=== PATIENT | female | born 1960 | race Caucasian/White ===

== ENCOUNTER 2017-02-15 08:32 | Emergency (ER) | payer MEDICARE, SELFPAY ==
[2017-02-15] VITALS (7 sets, daily range): BP systolic 74–169; BP diastolic 60–90; PULSE 84–106; RESP 18–30; TEMP 36.8; O2SAT 94–100; BMI 22.1
--- NOTE | 2017-02-15 08:48 | MRI_ITS ---
STUDY: MRI LUMBAR SPINE WITHOUT CONTRAST REASON FOR EXAM: Female, 56 years old. Back pain with bilateral leg numbness. TECHNIQUE: Standardized fat and water weighted pulse sequences were obtained in the sagittal and axial planes. COMPARISON: None FINDINGS: T12-L1: Ru sagittal Normal endplates. Normal disc height, hydration and morphology. Normal bilateral facet joints. Normal central canal and bilateral lateral recesses. Normal bilateral intervertebral neural foramina. Normal lumbar lordosis. There is no substantial scoliosis. Normal conus medullaris that terminates at the superior endplate of the L2 vertebra. L1-2: (Imaged only in the sagittal plane). Normal endplates. Normal disc height, hydration and morphology. Normal bilateral facet joints. Normal central canal and bilateral lateral recesses. Normal bilateral intervertebral neural foramina. L2-3: Normal endplates. Normal disc height, hydration and morphology. Normal bilateral facet joints. Normal central canal and bilateral lateral recesses. Normal bilateral intervertebral neural foramina. L3-4: There is disc desiccation, mild loss of the disc height with circumferential annular bulging and facet arthrosis. The AP diameter of the central canal measures 9.5 mm which is at the lower limits of normal in size. There is mild bilateral foraminal stenosis but without neural impingement. L4-5: There is disc desiccation, preservation disc height, circumferential annular bulging with moderate bilateral facet arthrosis there is hypertrophy ligament flavum with infolding producing dorsolateral thecal sac flattening and moderate central canal and left lateral recess stenosis with neural impingement upon the descending left L5 nerve root (axial T2 series 6, image 12). There is mild right and moderate left-sided foraminal stenosis with mild anterior-posterior impingement upon the exiting left L4 nerve root (sagittal T2 series 2, image 3).. L5-S1: There is disc desiccation with collapse intervertebral discs with circumferential endplate. There is a posterior central disc protrusion (sagittal T2 series 2, image 7, measuring 3 x 14 mm (AP, transverse), producing ventral epidural fat effacement. This mild facet arthrosis. Normal central canal with moderate bilateral foraminal stenosis but without definitive neural impingement. S1-2: There is lumbarization the S1 vertebra with a rudimentary S1-2 intervertebral disc with normal hydration and patent intervertebral neural foramina. Normal visualized sacral ala. There is fluid distention of loops of bilateral extending into the pelvis. There is hypointense fluid which appears to be tracking the fascial planes which appears to be extraluminal. CT of the abdomen is recommended for further assessment of this indeterminate finding. MRI/Spine Lumbar (Routine) IMPRESSION: 1. L3-4 borderline central canal stenosis. 2. L4-5 moderate central canal and left foraminal and left lateral recess stenoses with impingement upon the exiting left L4 and descending left L5 nerve root. 3. L5-S1 advanced degenerative disc disease with a posterior central disc protrusion and bilateral facet arthrosis with moderate bilateral foraminal stenosis. 4. Possible hypointense extraluminal fluid within the abdomen. A CT scan of the abdomen is recommended for further assessment of this indeterminate finding. N.B. : The above information has been verbally conveyed by Troy Kingston DO to , Covering Physician, on 02/15/2017 10:37:55 (ET). Electronically Signed: Troy Kingston DO at 10:24 EST Tel , Service support , N.B. : The above information has been verbally conveyed by Troy Kingston DO to , Covering Physician, on 02/15/2017 10:37:55 (ET).
[2017-02-15] MEDS: Ketorolac 30 MG/ML Syringe IV (08:56)
[2017-02-15] MEDS: Ondansetron 4 MG/2 ML Vial IV (08:56)
[2017-02-15] MEDS: HYDROmorphone HCL 0.5 MG/0.5 ML SYRINGE 1 MG IV ×2 (08:56→09:30)
[2017-02-15 09:30] LABS: Absolute Neutrophil Count 10.8 X10^3/uL (2.0-7.7); Basophil# 0.01 X10^3/uL; Basophil% 0.1 % (0-1); Eosinophil# 0.02 X10^3/uL; Eosinophils% 0.2 % (0-5); Hematocrit 30.9 % (37-47); Hemoglobin 10.3 g/dl (12.0-15.0); Lymphocyte % 8.6 % (19-41); Mean Corp Hgb Conc 33.3 g/gl (32-36); Mean Corpuscular Hgb 31.2 pg (27.0-32.0); Mean Corpuscular Volume 93.6 fL (81-99); Mean Platelet Vol. 8.1 fl (6.2-12.0); Monocyte# 0.78 X10^3/uL; Monocyte% 6.1 % (0-10); Neutrophil # 10.82 X10^3/uL (2.7-7.7); Neutrophil % 84.5 % (47-70); POSITIVE COUNT NO; POSITIVE DIFFERENTIAL NO; POSITIVE MORPHOLOGY NO; Platelet Count 347 K/mm3 (150-450); RBC Distribution Width CV 12.6 % (11.6-14.6); RBC Distribution Width SD 41.1 fl (35.1-43.9); White Blood Count 12.8 K/mm3 (4.4-11.0)
--- NOTE | 2017-02-15 09:41 | ED.VISSUMM ---
- ER Visit Summary Date of Service: 02/15/17 Chief Complaint: Awoke this a.m. with severe back pain and inability to use legs History of Present Illness: The patient is a 56 F with a history of MS who presents with severe lower back pain associated with incontinence and inability to use legs. Patient denies fever, chills night sweats. She denies any ocular, visual auditory symptoms. No trouble with speech or swallowing. Denies any cardiac respiratory symptoms. She denies abdominal pain, nausea, vomiting or diarrhea. Per EMS report she was found in puddle of stool and urine. She states she has no sensation in her legs and cannot move her legs. Physical Examination: Patient's vitals are remarkable for elevation blood pressure 143/90. Respiratory to 30. She appears uncomfortable. Head is atraumatic normocephalic. Pupils are equal round reactive. Extraocular muscles are intact. TMs are pearly white with landmarks noted. Nares patent with no drainage. Posterior pharynx without erythema or exudate. Uvula is midline. There is no dysphonia or dysphasia. Trachea is midline. There is no stridor with auscultation of the neck. Heart is regular without murmur, gallop or rub. S1 and S2 are normal. Lungs are clear to auscultation with good movement of air bilaterally. Abdomen is soft but firm. There is no pain. She has surgical scars noted that are well-healed. She has severe lumbar pain to palpation. Pelvis is nontender. She is incontinent of urine. She has no rectal tone. Deep tendon reflexes 1+ upper extremity absent lower extremity at the patella and ankle. She does not perceive light touch pain or noxious stimuli. DP pulses palpable bilaterally. There is no clonus or Babinski sign noted. Test Results: White count is 12.8 with 84 segs. Electrode panel 3.1. Glucose is 273. Coags are pending. Stat MRI revealed no abnormality would explain patient's symptoms. Radiologist was concerned that there was fluid in the fascial planes/retroperitoneal space. He recommended stat CT of the abdomen to discern etiology of this abnormality. CT of the abdomen and pelvis with IV contrast was ordered. There is evidence of aortic dissection. distribution technician will scan the chest. The [facility] has been sent and requested emergent dispatch of their helicopter. Emergency Department Course and Treatment: MRI of the back was ordered without contrast and she has no higher history of surgery. She was medicated with Dilaudid 1 mg ?2, 30 mils Toradol ?1 and Zofran for milligrams ?1. Blood work was ordered as well. Differential includes cord compression from cancer, transverse myelitis, epidural abscess, cauda equina syndrome Treatment Plan: Esmolol drip at night prior drip for blood pressure control and shearing forces. Disposition: Emergent transfer to tertiary center the transport team from the [facility] has accepted patient and is in route Impression: Acute aortic dissection, type A This note was generated with [employer] dictation software. It may contain incorrect words, spelling, and punctuation that were not noted in review of the chart prior to signing ED Disposition - Plan for ED Patient: Chief Complaint: Back Referrals: Gianluca Monsalve [Primary Care Provider] -
[2017-02-15 09:42] LABS: Anion Gap 17 (5-15); BUN 8 mg/dL (7-18); BUN/Creat Ratio 9.8 RATIO (10-20); Calcium,Total 8.4 mg/dL (8.5-10.1); Chloride 101 mmol/L (98-107); Creatinine, Serum 0.82 mg/dL (0.55-1.02); EST Glomerular Filtration Rate 77 mL/min (>60); Est Glom Filt Rate - Afr Amer 93 mL/min (>60); Estimated Creatinine Clearance 55.03 ml/min; Glucose 237 mg/dL (70-110); Potassium 3.1 mmol/L (3.5-5.1); Sodium Level 139 mmol/L (136-145)
--- NOTE | 2017-02-15 09:45 | ED.DCSUM_ITS ---
- ER Visit Summary Date of Service: 02/15/17 Chief Complaint: Awoke this a.m. with severe back pain and inability to use legs History of Present Illness: The patient is a 56 F with a history of MS who presents with severe lower back pain associated with incontinence and inability to use legs. Patient denies fever, chills night sweats. She denies any ocular , visual auditory symptoms. No trouble with speech or swallowing. Denies any cardiac respiratory symptoms. She denies abdominal pain, nausea, vomiting or diarrhea. Per EMS report she was found in puddle of stool and urine. She states she has no sensation in her legs and cannot move her legs. Physical Examination: Patient's vitals are remarkable for elevation blood pressure 143/90. Respiratory to 30. She appears uncomfortable. Head is atraumatic normocephalic. Pupils are equal round reactive. Extraocular muscles are intact. TMs are pearly white with landmarks noted. Nares patent with no drainage. Posterior pharynx without erythema or exudate. Uvula is midline. There is no dysphonia or dysphasia. Trachea is midline. There is no stridor with auscultation of the neck. Heart is regular without murmur, gallop or rub. S1 and S2 are normal. Lungs are clear to auscultation with good movement of air bilaterally. Abdomen is soft but firm. There is no pain. She has surgical scars noted that are well-healed. She has severe lumbar pain to palpation. Pelvis is nontender. She is incontinent of urine. She has no rectal tone. Deep tendon reflexes 1+ upper extremity absent lower extremity at the patella and ankle. She does not perceive light touch pain or noxious stimuli. DP pulses palpable bilaterally. There is no clonus or Babinski sign noted. Test Results: White count is 12.8 with 84 segs. Electrode panel 3.1. Glucose is 273. Coags are pending. Stat MRI revealed no abnormality would explain patient's symptoms. Radiologist was concerned that there was fluid in the fascial planes/retroperitoneal space. He recommended stat CT of the abdomen to discern etiology of this abnormality. CT of the abdomen and pelvis with IV contrast was ordered. There is evidence of aortic dissection. animal laboratory technician will scan the chest. The [facility] has been sent and requested emergent dispatch of their helicopter. Emergency Department Course and Treatment: MRI of the back was ordered without contrast and she has no higher history of surgery. She was medicated with Dilaudid 1 mg ?2, 30 mils Toradol ?1 and Zofran for milligrams ?1. Blood work was ordered as well. Differential includes cord compression from cancer, transverse myelitis, epidural abscess, cauda equina syndrome Treatment Plan: Esmolol drip at night prior drip for blood pressure control and shearing forces. Disposition: Emergent transfer to tertiary center the transport team from the [facility] has accepted patient and is in route Impression: Acute aortic dissection, type A This note was generated with [employer] dictation software. It may contain incorrect words, spelling, and punctuation that were not noted in review of the chart prior to signing ED Disposition - Plan for ED Patient: Chief Complaint: Back Referrals: Gianluca Monsalve [Primary Care Provider] -
--- NOTE | 2017-02-15 10:38 | CT_ITS ---
STUDY: CT ABDOMEN AND PELVIS WITH CONTRAST REASON FOR EXAM: Female, 56 years old. Low back pain and abdominal pain. Incontinence. Patient has a history of a multiple sclerosis. RADIATION DOSAGE (If Supplied By Facility): CTDIvol = ( 7.06 ) mGy, DLP = ( 512.02 ) mGycm TECHNIQUE: Transaxial images were obtained from the dome of the diaphragm to the symphysis pubis without oral contrast. 100 ml of Isovue 300 contrast was administered. Sagittal and coronal images were reconstructed. Individualized dose optimization techniques were used for this CT. COMPARISON: None. FINDINGS: The visualized lung bases are unremarkable. There is evidence of a Pradip type a dissection of the descending aorta, aortic arch and descending thoracic aorta. This extends down into the abdominal aorta. Both the false and true lumen are opacified. There is occlusion of the distal abdominal aorta with a clot. There is dilatation of the descending thoracic aorta with a transverse dimension of 5.5 cm. Fluid is seen surrounding the descending thoracic aorta. This most like represents a leak. The dissection extends into the right brachiocephalic artery as well as the left subclavian artery at its origin. Normal liver. Normal gallbladder and extrahepatic biliary system. Normal spleen. Normal pancreas. Normal bilateral adrenal glands. Normal right kidney. Normal left kidney. Normal visualized stomach. Normal small intestine. Normal colon. The appendix is visualized and appears normal. Normal inferior vena cava. Normal retroperitoneum. CT/Abdomen/Pelvis W IV Cont ONLY IMPRESSION: Extensive type A intimal dissection of the entire aorta as described. There is occlusion of the distal abdominal aorta and both common iliac arteries. Thrombus is seen within it. The case was reviewed with the attending physician. Electronically Signed: Bismark Fernandez MD at 11:41 EST Tel [phone], Service support ,
--- NOTE | 2017-02-15 10:54 | CT_ITS ---
STUDY: CT CHEST WITH CONTRAST REASON FOR EXAM: Female, 56 years old. Back pain and abdominal pain. RADIATION DOSAGE (If Supplied By Facility): CTDIvol = ( 7.06 ) mGy, DLP = ( 512.02 ) mGycm TECHNIQUE: Transaxial imaging was performed following intravenous administration of 100 ml of Isovue 300 contrast material. Multiplanar coronal and sagittal images were reformatted. Individualized dose optimization techniques were used for this CT. COMPARISON: None. FINDINGS: The lungs are normal. There is no demonstrated pleural abnormality. Type A aortic dissection involving the entire aorta. There is dilatation of the ascending aorta and proximal aortic arch measuring 5.5 cm. Fluid is seen surrounding the aorta and proximal aortic arch suggestive of the leakage. Both the false and true lumen are unopacified. The dissection extends into the origin of the left subclavian artery and the right brachiocephalic artery. Normal mediastinum. Normal hilar regions. Normal enhanced pulmonary arteries. Normal osseous structures. There is no demonstrated abnormality of the visualized upper abdomen. CT/Chest WITH Contrast IMPRESSION: Type A dissection of the entire aorta as described. Electronically Signed: Bismark Fernandez MD at 11:42 EST Tel [phone], Service support ,
[2017-02-15 11:17] LABS: International Normalized Ratio 1.2; Prothrombin Time (Protime)PT. 14.9 SECONDS (11.7-14.9)
[2017-02-15 11:18] LABS: Partial Thromboplast Time 29.4 Seconds (24.1-36.2)
[2017-02-15] MEDS: Esmolol 2,500 MG/250 ML IV.SOLN. 15.45 MG IV (11:33)
== END 2017-02-15 11:50 | disposition short-term general hospital (02) ==
PROVIDERS: Emergency Provider Emergency Medicine; Family Provider Family Medicine; PCP Family Medicine
DX: I71.00 Dissection of unspecified site of aorta (principal); G35 Multiple sclerosis; R32 Unspecified urinary incontinence; Z79.899 Other long term (current) drug therapy
CPT/HCPCS: 71260; 72148; 74176; 80048; 85025; 85610; 85730; 96365; 96375; 96376; 99285; J7030; Q9967; A4216; J2405

== ENCOUNTER → 2019-06-04 13:41 | Outpatient (CLI) | payer MEDICARE, MEDICAID, SELFPAY ==
--- NOTE | 2019-06-04 13:46 | CT_ITS ---
STUDY: CT ABDOMEN AND PELVIS WITH CONTRAST REASON FOR EXAM: Female, 58 years old. TAA REPAIR RADIATION DOSAGE (If Supplied By Facility): CTDIvol = ( 6.7 ) mGy, DLP = ( 345.06 ) mGycm TECHNIQUE: Transaxial images were obtained from the dome of the diaphragm to the symphysis pubis without oral contrast. IV 100mL [id number] was administered. Sagittal and coronal images were reconstructed. Individualized dose optimization techniques were used for this CT. COMPARISON: Comparison is made with prior study dated February 15, 2017. FINDINGS: The visualized lung bases are unremarkable. The visualized portions of the heart are within normal limits. Normal liver. Normal gallbladder and extrahepatic biliary system. Normal spleen. Normal pancreas. Normal bilateral adrenal glands. Normal right kidney. Normal left kidney. Normal visualized stomach. Normal small intestine. Normal colon. The appendix is visualized and appears normal. The patient is status post repair of aortic dissection. Endoluminal covered stent device is seen with the proximal tip in the abdominal aorta and the distal limbs within the common iliac arteries bilaterally. There is no evidence of endoluminal leak. There is residual dissection of the proximal abdominal aorta with opacification of the true lumen anterior and medial. The superior mesenteric and celiac arteries arise from the true lumen. The renal arteries arise from the true lumen as well. Normal inferior vena cava. Normal retroperitoneum. Normal urinary bladder. Normal abdominal wall. Normal osseous structures. CT/CT ANGIO ABD&PEL W/O&W/DYE IMPRESSION: Status post and luminal stent grafting of the distal abdominal aorta and both common iliac arteries. Persistent dissection with opacification of the true lumen in the proximal abdominal aorta with filling of the visceral vessels from the true lumen. Electronically Signed: Bismark Fernandez, at 14:34 EDT , Service support ,
--- NOTE | 2019-06-04 13:46 | CT_ITS ---
STUDY: CTA CHEST REASON FOR EXAM: Female, 58 years old. TAA REPAIR RADIATION DOSAGE (If Supplied By Facility): CTDIvol = ( 6.7 ) mGy, DLP = ( 345.06 ) mGycm TECHNIQUE: The examination was performed with the intravenous administration of IV 100mL [id number]. Post-processing of the angiographic images was performed, with multiplanar reformation and 3D reconstruction. Individualized dose optimization techniques were used for this CT. COMPARISON: Comparison is made with prior study dated February 15, 2017. FINDINGS: Normal enhancement of the main pulmonary artery and right and left pulmonary arteries. Normal enhancement of the bilateral peripheral pulmonary arteries. There is no demonstrated pulmonary embolism. Normal thoracic aorta and visualized great vessels. Once again, there is evidence of a type A dissection involving the ascending and descending thoracic aorta. The dissection extends into the origin of the right subclavian artery and brachiocephalic artery. The descending aorta measures 3.7 cm in transverse dimension at this time. The previously seen periaortic hematoma as resolved. Since prior study, there is dilatation of the descending thoracic aorta. It has a transverse dimension of 3.7 cm. There is opacification of both lumens proximally with the anterior lumen having more contrast flowed within the posterior lumen suggestive of filling of the true lumen and less of the false lumen. Normal heart and pericardium. Normal mediastinum. Normal hilar regions. Normal visualized trachea and bronchi. The lungs are well expanded. Normal pulmonary parenchyma. Normal pleura. Normal chest wall structures. Normal osseous structures. CT/CTA Chest W/WO Contrast IMPRESSION: Status post midline sternotomy and repair of the aortic dissection as described. The descending thoracic aorta is dilated worse at the its origin just distal to the aortic arch. The true lumen and false lumen are opacified although the false lumen to a lesser extent. Electronically Signed: Bismark Fernandez, at 14:33 EDT , Service support ,
== END ==
PROVIDERS: PCP Family Medicine; Referring Provider Surgery Vascular Surgery; Visit Provider Surgery Vascular Surgery
DX: Z98.890 Other specified postprocedural states (principal)
CPT/HCPCS: 71275; 74174; Q9967

== ENCOUNTER 2019-09-02 11:30 | Outpatient (RCR) | payer MEDICARE, MEDICAID, SELFPAY ==
[2019-08-26 11:14] VITALS: BP 129/67; PULSE 52; RESP 18; TEMP 36; BMI 18.9
--- NOTE | 2019-08-26 11:54 | HP.PCM_ITS ---
(1) Multiple sclerosis Status: Acute Current Visit: Yes Code(s): G35 - Multiple sclerosis (2) Aortic aneurysm and dissection Status: Acute Current Visit: Yes Code(s): I71.00 - Dissection of unspecified site of aorta; I71.9 - Aortic aneurysm of unspecified site, without rupture (3) Foot drop, bilateral Status: Acute Current Visit: Yes Code(s): M21.371 - Foot drop, right foot; M21.372 - Foot drop, left foot (4) Bilateral leg weakness Status: Acute Current Visit: Yes Code(s): R29.898 - Other symptoms and signs involving the musculoskeletal system (5) Decubitus ulcer of toe, stage 2 Status: Acute Current Visit: Yes Code(s): L89.892 - Pressure ulcer of other site, stage 2 History of Present Illness Date of Service: 08/26/19 Chief Complaint: Follow-up left great toe ulcer from blister from her shoes.. History of Wound: 59-year-old white female with a history of multiple sclerosis. It had an aortic aneurysm and ended up in the hospital with no circulation going to her lower extremities had a bilateral fasciotomy that has caused her to have foot drop and difficulty walking and now is developing pressure ulcers in her toes and feet. Patient does have a AFO bilateral legs to fit into her shoes. She is starting to curl her left toe also and developing a sore on the pad of the left great toe also. Past Medical History Past Medical History: Aortic aneurysm. MS. Fasciotomy bilateral lower legs emergency. Bilateral foot drop Allergies/Adverse Reactions: Allergies No Known Allergies Allergy (Verified 02/15/17 08:38) Home Medications: Ambulatory Orders Medication Instructions Recorded Dextroamphetamine/Amphetamine 10 mg PO BID 02/15/17 [Adderall 10 mg Tablet] Gabapentin [Neurontin] 800 mg PO TIDCM 02/15/17 Oxycodone [Oxyir] 10 mg PO Q4H PRN PRN 02/15/17 Prestique 100 mg PO DAILY 02/15/17 Aspirin [Aspirin, Baby] 81 mg PO DAILY@0800 08/26/19 Biotin 1,000 mcg PO DAILY 08/26/19 Cholecalciferol (VIT D3) [Vitamin 1,000 unit PO DAILY 08/26/19 D] Cyanocobalamin (Vitamin B-12) 1,000 mcg PO DAILY 08/26/19 [Vitamin B-12] Meloxicam 15 mg PO DAILY 08/26/19 Metoprolol Tartrate [Lopressor 50 mg PO BID 08/26/19 (Beta Charissa)] Multivitamin with Minerals 1 ea PO DAILY 08/26/19 [Multiple Vitamin] Pantoprazole Sodium [Protonix] 40 mg PO BID 08/26/19 Rebif Rebidose 44 mcg SQ QODAY 08/26/19 Rosuvastatin Calcium [Crestor] 10 mg PO DAILY 08/26/19 Lives: Alone Smoking Status: Light Smoker (<10/day) Review of Systems Constitutional: Denies: Chills, Fever Eyes: Denies: Blurred vision, Drainage, Pain HEENT: Denies: Difficulty Hearing, Difficulty Swallowing, Sore Throat, Visual Changes Cardiovascular: Denies: Chest Pain, Palpitations, Syncope Respiratory: Denies: Cough, Shortness of Breath Gastrointestinal: Denies: Abdominal Pain, Nausea, Vomiting Genitourinary: Denies: Dysuria, Frequency Musculoskeletal: Denies: Joint Pain, Muscle pain Skin: Reports: - - Pressure ulcer left dorsal great toe. Denies: Jaundice, Rash Neurological: Denies: Balance problems, Change in Speech, Difficulty swallowing, Focal weakness Psychiatric: Denies: Anxiety, Depression Endocrine: Denies: Change in Body Habitus Hematologic/ Lymphatic: Denies: Adenopathy - Physical Exam Vital Signs Temp Pulse Resp BP 96.8 F L 52 L 18 129/67 H 08/26/19 11:14 08/26/19 11:14 08/26/19 11:14 08/26/19 11:14 General: Oriented x3, Cooperative, Well developed HEENT: Atraumatic, PERRLA Oral: Moist Mucosa Neck: Supple, No JVD Lungs: Clear to auscultation, Normal air movement Cardiovascular: Regular rate, Regular Rhythm Abdomen: Bowel Sounds Present, Soft, Non Tender, No Hepato-splenomegaly Extremities: No clubbing, No edema, - - Pressure ulcer stage II left great toe dorsal side Wound Measurements and Assessment WC - Nurse 1 - General Ulcer Measurement Start: 08/26/19 11:00 Freq: Status: Active Protocol: Activity Type Activity Date Activity User E-Sign Co-Sign Detail Recorded Client Recorded Date Recorded By Document 08/26/19 11:14 RB [id number] 08/26/19 11:30 RB 08/26/19 11:14 Wound Center Nurse 1 [Ulcer Assessment] 1. L great toe -Combined with other wound No -Current Size (cm) - Length 0.2 -Current Size (cm) - Width 0.3 -Current Size (cm) - Depth 0.3 -Total Square Cm 0.06 -Photo Taken Yes -Tunneling No -Undermining/Tunneling Yes -Undermining/Tunneling Starts (O' 12 clock) -Undermining/Tunneling Ends (O'clock) 12 -Maximum Distance (cm) 0.3 -Circular Undermining Yes -Exudate Amt Small -Exudate Type Serosanguineous -Wound Margin Flat & Intact -Granulation Amt Medium (34-66%) -Granulation Quality [place] -Slough/Fibrin Yes -Necrosis Amt Small (1-33%) -Necrotic Tissue Type Adherent Slough -Structure Exposed N/A -Texture (Celine-wound Skin Appearance) Assessed -Moisture (Celine-wound Skin Appearance Assessed ) -Color (Celine-wound Skin Appearance) Assessed, Erythema -Temperature (Celine-wound Skin No Abnormality Appearance) (Pt Warm) -Tenderness on Palpation (Celine-wound No Skin Appearance) -Ulcer Cleansing Wound Cleanser -Foul Odor after Cleansing No -Anesthetic Used 4% Lidocaine Solution [Edema Assessment] -Lower Limb Edema Present Yes -Right Calf (cm) 26 -Right Ankle (cm) 21 -Left Calf (cm) 26 -Left Ankle (cm) 20.5 WC - Nurse 2 - General Ulcer CM Notes Start: 08/26/19 11:00 Freq: Status: Active Protocol: Activity Type Activity Date Activity User E-Sign Co-Sign Detail Recorded Client Recorded Date Recorded By Document 08/26/19 11:40 MW [id number] 08/26/19 11:47 MW 08/26/19 11:40 Wound Center Nurse 2 [Procedure/Treatment] 1. L great toe -Time 11:41 -Correct Patient Yes -Correct Side, Site, Position Yes -Correct Procedure Yes -Procedure Performed Yes -Type of Procedure Debridement -Clinical Debridement Subcutaneous -Post Debridement Size (cm) - Length 0.4 -Post Debridement Size (cm) - Width 0.4 -Post Debridement Size (cm) - Depth 0.2 -Total Square Cm 0.16 -Wound/Ulcer Outcome Not Healed -Ulcer Cleansing Rinsed/ Irrigated with Saline -Foul Odor after Cleansing No -Bioengineered Tissue No -Bleeding Controlled with Pressure -Offloading No -Treatment Response Procedure Tolerated Well [See Physician Procedure note for Specifics] Pain Scale: 0-10 Numeric [Pain] -Is Patient Pain Free? Yes Musculoskeletal: No Tenderness to Palpation of Joints or Extremities Lymphatic: No Cervical, Supraclavicular, or Inguinal Adenopathy Neurological: Cranial nerves II-XII grossly intact, Neuro grossly intact Psych/Mental Status: Normal Affect, Appropriate Debridement Note Post-Debridement Measurements/Treatment WC - Nurse 2 - General Ulcer CM Notes Start: 08/26/19 11:00 Freq: Status: Active Protocol: Activity Type Activity Date Activity User E-Sign Co-Sign Detail Recorded Client Recorded Date Recorded By Document 08/26/19 11:40 MW [id number] 08/26/19 11:47 MW 08/26/19 11:40 Wound Center Nurse 2 1. L great toe -Time 11:41 -Correct Patient Yes -Correct Side, Site, Position Yes -Correct Procedure Yes -Procedure Performed Yes -Type of Procedure Debridement -Clinical Debridement Subcutaneous -Post Debridement Size (cm) - Length 0.4 -Post Debridement Size (cm) - Width 0.4 -Post Debridement Size (cm) - Depth 0.2 -Total Square Cm 0.16 -Wound/Ulcer Outcome Not Healed -Ulcer Cleansing Rinsed/ Irrigated with Saline -Foul Odor after Cleansing No -Bioengineered Tissue No -Bleeding Controlled with Pressure -Offloading No -Treatment Response Procedure Tolerated Well Pain Scale: 0-10 Numeric Is Patient Pain Free? Yes Wound debrided: Left great toe Wound Grade/Stage: Stage II Type of Debridement: Excisional debridement Anesthesia Used: 5% Lidocaine Gel Depth: Down to and including healthy tissue, in the subcutaneous layer Percentage of wound debrided: 100 Instrument Used: 3mm curette Tissue Removed: Devitalized tissue and fibrin Severity: Limited To Skin Breakdown Amount of bleeding with debridement: Mild Bleeding Controlled with: Compression and gauze Patient tolerated procedure well Assessment/Plan Week and anaerobic cultures obtained Active Problems Multiple sclerosis (Acute) Aortic aneurysm and dissection (Acute) Foot drop, bilateral (Acute) Bilateral leg weakness (Acute) Decubitus ulcer of toe, stage 2 (Acute) Assessment: Foot drop bilateral feet. Stage II ulcer left great toe dorsal side. Neuropathy bilateral lower legs with weakness Plan: Wash left great toe with antibacterial soap and water. Apply Promogran to wound base packing. Cover with Adaptic gauze and tape. Follow-up in 1 week. We will call with the culture results if any
--- NOTE | 2019-09-01 10:20 | WC ---
Prescription for Levofloxacin 500mg 1 tab PO BID X 14 days was called into [facility] [phone] Patient was informed of the order by phone
[2019-09-02 11:43] VITALS: BP 132/54; PULSE 61; RESP 18; TEMP 36.8; BMI 18.9
--- NOTE | 2019-09-02 12:26 | PCM.WC.PN ---
(1) Multiple sclerosis Status: Acute Current Visit: Yes Code(s): G35 - Multiple sclerosis (2) Aortic aneurysm and dissection Status: Acute Current Visit: Yes Code(s): I71.00 - Dissection of unspecified site of aorta; I71.9 - Aortic aneurysm of unspecified site, without rupture (3) Foot drop, bilateral Status: Acute Current Visit: Yes Code(s): M21.371 - Foot drop, right foot; M21.372 - Foot drop, left foot (4) Bilateral leg weakness Status: Acute Current Visit: Yes Code(s): R29.898 - Other symptoms and signs involving the musculoskeletal system (5) Decubitus ulcer of toe, stage 2 Status: Acute Current Visit: Yes Qualifiers: Laterality: left Qualified Code(s): L89.892 - Pressure ulcer of other site, stage 2 Code(s): L89.892 - Pressure ulcer of other site, stage 2 Type of Wound Date of Service: 09/02/19 Chief Complaint: Follow-up left great toe ulcer from blister from her shoes.. History of Wound: 59-year-old white female with a history of multiple sclerosis. It had an aortic aneurysm and ended up in the hospital with no circulation going to her lower extremities had a bilateral fasciotomy that has caused her to have foot drop and difficulty walking and now is developing pressure ulcers in her toes and feet. Patient does have a AFO bilateral legs to fit into her shoes. She is starting to curl her left toe also and developing a sore on the pad of the left great toe also. Progress of Wound: Patient just started her antibiotic yesterday for her bacteria that is growing in her wound. Left great toe still slightly swollen and red. Still has open area on dorsal toe small opening with depth and slough.Patient did grow bacteria in her toe is treated with antibiotics now - Physical Exam Vital Signs Temp Pulse Resp BP 98.3 F 61 18 132/54 H 09/02/19 11:43 09/02/19 11:43 09/02/19 11:43 09/02/19 11:43 General: Oriented x3, Cooperative, Well developed HEENT: Atraumatic, PERRLA Oral: Moist Mucosa Neck: Supple, No JVD Lungs: Clear to auscultation, Normal air movement Cardiovascular: Regular rate, Regular Rhythm Abdomen: Bowel Sounds Present, Soft, Non Tender, No Hepato-splenomegaly Extremities: No clubbing, No edema, - - Lateral foot drop Skin: Ulcer/ Wound - Pressure ulcer left great toe anterior Wound Measurements and Assessment WC - Nurse 1 - General Ulcer Measurement Start: 08/26/19 11:00 Freq: Status: Active Protocol: Activity Type Activity Date Activity User E-Sign Co-Sign Detail Recorded Client Recorded Date Recorded By Document 09/02/19 11:43 RB [id number] 09/02/19 11:46 RB 09/02/19 11:43 Wound Center Nurse 1 [Ulcer Assessment] 1. L great toe -Combined with other wound No -Current Size (cm) - Length 0.1 -Current Size (cm) - Width 0.1 -Current Size (cm) - Depth 0.1 -Total Square Cm 0.01 -Tunneling No -Undermining/Tunneling No -Circular Undermining No -Exudate Amt Small -Exudate Type Serosanguineous -Wound Margin Thickened -Granulation Amt Medium (34-66%) -Granulation Quality [place] -Slough/Fibrin Yes -Necrosis Amt Small (1-33%) -Necrotic Tissue Type Adherent Slough -Structure Exposed N/A -Texture (Celine-wound Skin Appearance) Assessed -Moisture (Celine-wound Skin Appearance Assessed ) -Color (Celine-wound Skin Appearance) Erythema -Temperature (Celine-wound Skin No Abnormality Appearance) (Pt Warm) -Tenderness on Palpation (Celine-wound No Skin Appearance) -Ulcer Cleansing Wound Cleanser -Foul Odor after Cleansing No -Anesthetic Used 4% Lidocaine Solution Musculoskeletal: No Tenderness to Palpation of Joints or Extremities Lymphatic: No Cervical, Supraclavicular, or Inguinal Adenopathy Neurological: Cranial nerves II-XII grossly intact, Neuro grossly intact Psych/Mental Status: Normal Affect, Appropriate, Alert and oriented to time, place, person, mood and affect Debridement Note Post-Debridement Measurements/Treatment WC - Nurse 2 - General Ulcer CM Notes Start: 08/26/19 11:00 Freq: Status: Active Protocol: Activity Type Activity Date Activity User E-Sign Co-Sign Detail Recorded Client Recorded Date Recorded By Document 08/26/19 11:40 MW [id number] 08/26/19 11:47 MW 08/26/19 11:40 Wound Center Nurse 2 1. L great toe -Time 11:41 -Correct Patient Yes -Correct Side, Site, Position Yes -Correct Procedure Yes -Procedure Performed Yes -Type of Procedure Debridement -Clinical Debridement Subcutaneous -Post Debridement Size (cm) - Length 0.4 -Post Debridement Size (cm) - Width 0.4 -Post Debridement Size (cm) - Depth 0.2 -Total Square Cm 0.16 -Wound/Ulcer Outcome Not Healed -Ulcer Cleansing Rinsed/ Irrigated with Saline -Foul Odor after Cleansing No -Bioengineered Tissue No -Bleeding Controlled with Pressure -Offloading No -Treatment Response Procedure Tolerated Well Pain Scale: 0-10 Numeric Is Patient Pain Free? Yes Wound debrided: Anterior dorsal left toe Type of Debridement: Excisional debridement Anesthesia Used: 5% Lidocaine Gel Depth: Down to and including healthy tissue, in the subcutaneous layer Percentage of wound debrided: 100 Instrument Used: 3mm curette Tissue Removed: Fibrin Severity: Limited To Skin Breakdown Amount of bleeding with debridement: None Bleeding Controlled with: Pressure Patient tolerated procedure well Assessment/Plan Active Problems Multiple sclerosis (Acute) Aortic aneurysm and dissection (Acute) Foot drop, bilateral (Acute) Bilateral leg weakness (Acute) Decubitus ulcer of toe, stage 2 (Acute) Assessment: Foot drop bilateral feet. Stage II ulcer left great toe dorsal side. Neuropathy bilateral lower legs with weakness Plan: Wash left great toe with antibacterial soap and water. Apply Promogran to wound base packing. Cover with gauze and tape. Follow-up in 1 week. Patient is start antibiotic therapy Bactrim DS twice a day for 14 days
== END 2019-09-08 23:59 ==
LOC: WC 11:30
PROVIDERS: PCP Family Medicine; Referring Provider Nurse Practitioner; Visit Provider Nurse Practitioner
DX: L89.892 Pressure ulcer of other site, stage 2 (principal); R29.898 Other symptoms and signs involving the musculoskeletal system; M21.372 Foot drop, left foot; G35 Multiple sclerosis; Z79.899 Other long term (current) drug therapy; Z79.82 Long term (current) use of aspirin; F17.200 Nicotine dependence, unspecified, uncomplicated; G62.9 Polyneuropathy, unspecified
CPT/HCPCS: 11042; 87070; 87075; 87077; 87186; 87205; 99213; G0463

== ENCOUNTER 2019-10-07 11:30 | Outpatient (RCR) | payer MEDICARE, MEDICAID, SELFPAY ==
[2019-09-09 00:38] VITALS: BP 132/54; PULSE 61; RESP 18; TEMP 36.8
[2019-09-16 11:25] VITALS: BP 100/36; PULSE 58; RESP 16; TEMP 36.2; BMI 18.9
--- NOTE | 2019-09-16 11:53 | PCM.WC.PN ---
(1) Decubitus ulcer of toe, stage 2 Status: Acute Current Visit: Yes Qualifiers: Code(s): L89.892 - Pressure ulcer of other site, stage 2 (2) Foot drop, bilateral Status: Acute Current Visit: Yes Code(s): M21.371 - Foot drop, right foot; M21.372 - Foot drop, left foot (3) Multiple sclerosis Status: Acute Current Visit: Yes Code(s): G35 - Multiple sclerosis Type of Wound Date of Service: 09/16/19 Chief Complaint: Follow-up left great toe ulcer from blister from her shoes.. History of Wound: 59-year-old white female with a history of multiple sclerosis. It had an aortic aneurysm and ended up in the hospital with no circulation going to her lower extremities had a bilateral fasciotomy that has caused her to have foot drop and difficulty walking and now is developing pressure ulcers in her toes and feet. Patient does have a AFO bilateral legs to fit into her shoes. She is starting to curl her left toe also and developing a sore on the pad of the left great toe also. Progress of Wound: Patient just started her antibiotic yesterday for her bacteria that is growing in her wound. Left great toe no longer red or swollen. Still has open area on dorsal toe small opening with depth and band of tight tissue that strangulated the opening. Continue with the Promogran and see if that heals better - Physical Exam Vital Signs Temp Pulse Resp BP 97.1 F L 58 L 16 100/36 L 09/16/19 11:25 09/16/19 11:25 09/16/19 11:25 09/16/19 11:25 General: Oriented x3, Cooperative, Well developed HEENT: Atraumatic, PERRLA Oral: Moist Mucosa Neck: Supple, No JVD Lungs: Clear to auscultation, Normal air movement Cardiovascular: Regular rate, Regular Rhythm Abdomen: Bowel Sounds Present, Soft, Non Tender, No Hepato-splenomegaly Extremities: No clubbing, No edema Skin: Ulcer/ Wound - Left great toe decubitus ulcer Wound Measurements and Assessment WC - Nurse 1 - General Ulcer Measurement Start: 09/16/19 11:25 Freq: Status: Active Protocol: Activity Type Activity Date Activity User E-Sign Co-Sign Detail Recorded Client Recorded Date Recorded By Document 09/16/19 11:25 [id number] 09/16/19 11:32 CS 09/16/19 11:25 Wound Center Nurse 1 [Ulcer Assessment] 1. L great toe -Combined with other wound No -Current Size (cm) - Length 0.3 -Current Size (cm) - Width 0.2 -Current Size (cm) - Depth 0.2 -Total Square Cm 0.06 -Photo Taken No -Epithelialization None Present -Tunneling No -Undermining/Tunneling No -Circular Undermining Yes -Exudate Amt Medium -Exudate Type Yellow/Green -Wound Margin Distinct, Outline Attached -Granulation Amt Large (67-100%) -Granulation Quality Red -Necrosis Amt None Present (0 %) -Necrotic Tissue Type Adherent Slough -Texture (Celine-wound Skin Appearance) Callus -Moisture (Celine-wound Skin Appearance Dry/Scaly ) -Color (Celine-wound Skin Appearance) No Abnormality, Assessed -Temperature (Celine-wound Skin No Abnormality Appearance) (Pt Warm) -Tenderness on Palpation (Celine-wound No Skin Appearance) -Ulcer Cleansing Rinsed/ Irrigated with Saline -Foul Odor after Cleansing No -Anesthetic Used 4% Lidocaine Solution [Edema Assessment] -Lower Limb Edema Present NA WC - Nurse 2 - General Ulcer CM Notes Start: 09/16/19 11:25 Freq: Status: Active Protocol: Activity Type Activity Date Activity User E-Sign Co-Sign Detail Recorded Client Recorded Date Recorded By Document 09/16/19 11:43 MW [id number] 09/16/19 11:50 MW 09/16/19 11:43 Wound Center Nurse 2 [Procedure/Treatment] 1. L great toe -Time 11:45 -Correct Patient Yes -Correct Side, Site, Position Yes -Correct Procedure Yes -Procedure Performed Yes -Type of Procedure Debridement -Clinical Debridement Subcutaneous -Post Debridement Size (cm) - Length 0.3 -Post Debridement Size (cm) - Width 0.3 -Post Debridement Size (cm) - Depth 0.2 -Total Square Cm 0.09 -Wound/Ulcer Outcome Not Healed -Ulcer Cleansing Rinsed/ Irrigated with Saline -Foul Odor after Cleansing No -Bioengineered Tissue No -Bleeding Controlled with Pressure -Offloading No -Treatment Response Procedure Tolerated Well [See Physician Procedure note for Specifics] Pain Scale: 0-10 Numeric [Pain] -Is Patient Pain Free? Yes Musculoskeletal: No Tenderness to Palpation of Joints or Extremities Lymphatic: No Cervical, Supraclavicular, or Inguinal Adenopathy Neurological: Cranial nerves II-XII grossly intact, Neuro grossly intact Psych/Mental Status: Normal Affect, Appropriate Debridement Note Post-Debridement Measurements/Treatment WC - Nurse 2 - General Ulcer CM Notes Start: 09/16/19 11:25 Freq: Status: Active Protocol: Activity Type Activity Date Activity User E-Sign Co-Sign Detail Recorded Client Recorded Date Recorded By Document 09/16/19 11:43 MW [id number] 09/16/19 11:50 MW 09/16/19 11:43 Wound Center Nurse 2 1. L great toe -Time 11:45 -Correct Patient Yes -Correct Side, Site, Position Yes -Correct Procedure Yes -Procedure Performed Yes -Type of Procedure Debridement -Clinical Debridement Subcutaneous -Post Debridement Size (cm) - Length 0.3 -Post Debridement Size (cm) - Width 0.3 -Post Debridement Size (cm) - Depth 0.2 -Total Square Cm 0.09 -Wound/Ulcer Outcome Not Healed -Ulcer Cleansing Rinsed/ Irrigated with Saline -Foul Odor after Cleansing No -Bioengineered Tissue No -Bleeding Controlled with Pressure -Offloading No -Treatment Response Procedure Tolerated Well Pain Scale: 0-10 Numeric Is Patient Pain Free? Yes Wound debrided: Great toe Laterality: Left Wound Grade/Stage: Stage II Type of Debridement: Excisional debridement Anesthesia Used: 4% Lidocaine Solution Depth: Down to and including healthy tissue, in the subcutaneous layer Percentage of wound debrided: 100 Instrument Used: 3mm curette Tissue Removed: Fibrin and devitalized tissue and callus Severity: Limited To Skin Breakdown Amount of bleeding with debridement: Mild Bleeding Controlled with: Compression and gauze Patient tolerated procedure well Assessment/Plan Active Problems Multiple sclerosis (Acute) Foot drop, bilateral (Acute) Decubitus ulcer of toe, stage 2 (Acute) Assessment: Foot drop bilateral feet. Stage II ulcer left great toe dorsal side. Neuropathy bilateral lower legs with weakness Plan: Wash left great toe with antibacterial soap and water. Apply Promogran to wound base packing. Cover with gauze and tape. Follow-up in 1 week
[2019-09-23 11:46] VITALS: BP 142/69; PULSE 60; RESP 18; TEMP 36.7; BMI 18.9
--- NOTE | 2019-09-23 12:51 | PCM.WC.PN ---
(1) Decubitus ulcer of toe, stage 2 Status: Acute Current Visit: Yes Qualifiers: Code(s): L89.892 - Pressure ulcer of other site, stage 2 (2) Foot drop, bilateral Status: Acute Current Visit: Yes Code(s): M21.371 - Foot drop, right foot; M21.372 - Foot drop, left foot (3) Multiple sclerosis Status: Acute Current Visit: Yes Code(s): G35 - Multiple sclerosis Type of Wound Date of Service: 09/23/19 Chief Complaint: Follow-up left great toe ulcer from blister from her shoes.. History of Wound: 59-year-old white female with a history of multiple sclerosis. It had an aortic aneurysm and ended up in the hospital with no circulation going to her lower extremities had a bilateral fasciotomy that has caused her to have foot drop and difficulty walking and now is developing pressure ulcers in her toes and feet. Patient does have a AFO bilateral legs to fit into her shoes. She is starting to curl her left toe also and developing a sore on the pad of the left great toe also. Progress of Wound: Patient just started her antibiotic yesterday for her bacteria that is growing in her wound. Left great toe no longer red or swollen. The open toe wound on the great toe is closing and she has been packing with Promogran which is finally filling in the whole. Will continue with the Promogran. - Physical Exam Vital Signs Temp Pulse Resp BP 98.1 F 60 18 142/69 H 09/23/19 11:46 09/23/19 11:46 09/23/19 11:46 09/23/19 11:46 General: Oriented x3, Cooperative, Well developed HEENT: Atraumatic, PERRLA Oral: Moist Mucosa Neck: Supple, No JVD Lungs: Clear to auscultation, Normal air movement Cardiovascular: Regular rate, Regular Rhythm Abdomen: Bowel Sounds Present, Soft, Non Tender, No Hepato-splenomegaly Extremities: No clubbing, No edema, - Skin: Ulcer/ Wound - Right great toe decubitus ulcer stage II Wound Measurements and Assessment WC - Nurse 1 - General Ulcer Measurement Start: 09/16/19 11:25 Freq: Status: Active Protocol: Activity Type Activity Date Activity User E-Sign Co-Sign Detail Recorded Client Recorded Date Recorded By Document 09/23/19 11:46 [id number] 09/23/19 11:50 09/23/19 11:46 Wound Center Nurse 1 [Ulcer Assessment] 1. L great toe -Combined with other wound No -Current Size (cm) - Length 0.2 -Current Size (cm) - Width 0.3 -Current Size (cm) - Depth 0.1 -Total Square Cm 0.06 -Tunneling No -Undermining/Tunneling No -Circular Undermining No -Exudate Amt Small -Exudate Type Serosanguineous -Wound Margin Flat & Intact -Granulation Amt Large (67-100%) -Granulation Quality Red -Slough/Fibrin Yes -Necrosis Amt Small (1-33%) -Necrotic Tissue Type Adherent Slough -Structure Exposed N/A -Texture (Celine-wound Skin Appearance) Callus -Moisture (Celine-wound Skin Appearance Assessed ) -Color (Celine-wound Skin Appearance) Assessed -Temperature (Celine-wound Skin No Abnormality Appearance) (Pt Warm) -Tenderness on Palpation (Celine-wound No Skin Appearance) -Ulcer Cleansing Wound Cleanser -Foul Odor after Cleansing No -Anesthetic Used 4% Lidocaine Solution [Edema Assessment] -Lower Limb Edema Present Yes -Left Calf (cm) 27.6 -Left Ankle (cm) 23 WC - Nurse 2 - General Ulcer CM Notes Start: 09/16/19 11:25 Freq: Status: Active Protocol: Activity Type Activity Date Activity User E-Sign Co-Sign Detail Recorded Client Recorded Date Recorded By Document 09/23/19 12:00 MW [id number] 09/23/19 12:02 MW 09/23/19 12:00 Wound Center Nurse 2 [Procedure/Treatment] 1. L great toe -Time 12:01 -Correct Patient Yes -Correct Side, Site, Position Yes -Correct Procedure Yes -Procedure Performed Yes -Type of Procedure Debridement -Clinical Debridement Subcutaneous -Post Debridement Size (cm) - Length 0.2 -Post Debridement Size (cm) - Width 0.2 -Post Debridement Size (cm) - Depth 0.1 -Total Square Cm 0.04 -Wound/Ulcer Outcome Not Healed -Ulcer Cleansing Rinsed/ Irrigated with Saline -Foul Odor after Cleansing No -Bioengineered Tissue No -Bleeding Controlled with Pressure -Offloading No -Treatment Response Procedure Tolerated Well [See Physician Procedure note for Specifics] Pain Scale: 0-10 Numeric [Pain] -Is Patient Pain Free? Yes Musculoskeletal: No Tenderness to Palpation of Joints or Extremities Lymphatic: No Cervical, Supraclavicular, or Inguinal Adenopathy Neurological: Cranial nerves II-XII grossly intact, Neuro grossly intact Psych/Mental Status: Normal Affect, Appropriate Debridement Note Post-Debridement Measurements/Treatment WC - Nurse 2 - General Ulcer CM Notes Start: 09/16/19 11:25 Freq: Status: Active Protocol: Activity Type Activity Date Activity User E-Sign Co-Sign Detail Recorded Client Recorded Date Recorded By Document 09/16/19 11:43 MW [id number] 09/16/19 11:50 MW Document 09/23/19 12:00 MW [id number] 09/23/19 12:02 MW 09/16/19 09/23/19 11:43 12:00 Wound Center Nurse 2 1. L great toe -Time 11:45 12:01 -Correct Patient Yes Yes -Correct Side, Site, Position Yes Yes -Correct Procedure Yes Yes -Procedure Performed Yes Yes -Type of Procedure Debridement Debridement -Clinical Debridement Subcutaneous Subcutaneous -Post Debridement Size (cm) - Length 0.3 0.2 -Post Debridement Size (cm) - Width 0.3 0.2 -Post Debridement Size (cm) - Depth 0.2 0.1 -Total Square Cm 0.09 0.04 -Wound/Ulcer Outcome Not Healed Not Healed -Ulcer Cleansing Rinsed/ Rinsed/ Irrigated with Irrigated with Saline Saline -Foul Odor after Cleansing No No -Bioengineered Tissue No No -Bleeding Controlled with Pressure Pressure -Offloading No No -Treatment Response Procedure Procedure Tolerated Well Tolerated Well Pain Scale: 0-10 Numeric Is Patient Pain Free? Yes Yes Wound debrided: Right great toe Wound Grade/Stage: Stage II Type of Debridement: Excisional debridement Anesthesia Used: 5% Lidocaine Gel Depth: Down to and including healthy tissue Percentage of wound debrided: 100 Instrument Used: 3mm curette Tissue Removed: Devitalized tissue Severity: Limited To Skin Breakdown Amount of bleeding with debridement: None Bleeding Controlled with: Compression and gauze Patient tolerated procedure well Assessment/Plan Active Problems Multiple sclerosis (Acute) Foot drop, bilateral (Acute) Decubitus ulcer of toe, stage 2 (Acute) Assessment: Foot drop bilateral feet. Stage II ulcer left great toe dorsal side. Neuropathy bilateral lower legs with weakness Plan: Wash left great toe with antibacterial soap and water. Apply Promogran to wound base packing. Cover with gauze and tape. Follow-up in 1 week
[2019-10-07 11:43] VITALS: RESP 16; TEMP 37; BMI 18.9
--- NOTE | 2019-10-07 12:12 | PN.PCM_ITS ---
(1) Decubitus ulcer of toe, stage 2 Status: Acute Current Visit: Yes Qualifiers: Code(s): L89.892 - Pressure ulcer of other site, stage 2 (2) Foot drop, bilateral Status: Acute Current Visit: Yes Code(s): M21.371 - Foot drop, right foot; M21.372 - Foot drop, left foot (3) Multiple sclerosis Status: Acute Current Visit: Yes Code(s): G35 - Multiple sclerosis Type of Wound Date of Service: 10/07/19 Chief Complaint: Follow-up left great toe ulcer from blister from her shoes.. History of Wound: 59-year-old white female with a history of multiple sclerosis. It had an aortic aneurysm and ended up in the hospital with no circulation going to her lower extremities had a bilateral fasciotomy that has caused her to have foot drop and difficulty walking and now is developing pressure ulcers in her toes and feet. Patient does have a AFO bilateral legs to fit into her shoes. She is starting to curl her left toe also and developing a sore on the pad of the left great toe also. Progress of Wound: ToDay the left total Cerner is pretty much closed we will try just a dry dressing for the week let scab over and return next week. Stopping the Promogran for now - Physical Exam Vital Signs Temp Pulse Resp BP 98.6 F 60 16 142/69 H 10/07/19 11:43 09/23/19 11:46 10/07/19 11:43 09/23/19 11:46 General: Oriented x3, Cooperative, Well developed HEENT: Atraumatic, PERRLA Oral: Moist Mucosa Neck: Supple, No JVD Lungs: Clear to auscultation, Normal air movement Cardiovascular: Regular rate, Regular Rhythm Abdomen: Bowel Sounds Present, Soft, Non Tender, No Hepato-splenomegaly Extremities: No clubbing, No edema Skin: Ulcer/ Wound - Left great toe ulcer decubitus ulcer stage II Wound Measurements and Assessment WC - Nurse 1 - General Ulcer Measurement Start: 09/16/19 11:25 Freq: Status: Active Protocol: Activity Type Activity Date Activity User E-Sign Co-Sign Detail Recorded Client Recorded Date Recorded By Document 10/07/19 11:43 [facility] [id number] 10/07/19 11:48 [facility] 10/07/19 11:43 Wound Center Nurse 1 [Ulcer Assessment] 1. L great toe -Combined with other wound No -Current Size (cm) - Length 0.2 -Current Size (cm) - Width 0.2 -Current Size (cm) - Depth 0.1 -Total Square Cm 0.04 -Photo Taken No -Epithelialization Small 1-33% -Tunneling No -Undermining/Tunneling No -Circular Undermining No -Exudate Amt None Present -Wound Margin Thickened -Granulation Amt Large (67-100%) -Granulation Quality Red -Slough/Fibrin No -Necrosis Amt None Present (0 %) -Texture (Celine-wound Skin Appearance) Assessed, Scarring -Moisture (Celine-wound Skin Appearance Assessed ) -Color (Celine-wound Skin Appearance) Assessed -Temperature (Celine-wound Skin No Abnormality Appearance) (Pt Warm) -Tenderness on Palpation (Celine-wound No Skin Appearance) -Ulcer Cleansing Rinsed/ Irrigated with Saline -Foul Odor after Cleansing No -Anesthetic Used 5% Lidocaine Gel WC - Nurse 2 - General Ulcer CM Notes Start: 09/16/19 11:25 Freq: Status: Active Protocol: Activity Type Activity Date Activity User E-Sign Co-Sign Detail Recorded Client Recorded Date Recorded By Document 10/07/19 11:59 MW [id number] 10/07/19 12:02 MW 10/07/19 11:59 Wound Center Nurse 2 [Procedure/Treatment] -Time 11:59 -Correct Patient Yes -Correct Side, Site, Position Yes -Correct Procedure Yes -Procedure Performed Yes -Type of Procedure Debridement -Clinical Debridement Subcutaneous -Post Debridement Size (cm) - Length 0.2 -Post Debridement Size (cm) - Width 0.2 -Post Debridement Size (cm) - Depth 0.1 -Total Square (cm) 0.04 -Wound/Ulcer Outcome Not Healed -Ulcer Cleansing Rinsed/ Irrigated with Saline -Foul Odor after Cleansing No -Bioengineered Tissue No -Bleeding Controlled with Pressure -Offloading No -Treatment Response Procedure Tolerated Well [See Physician Procedure note for Specifics] Pain Scale: 0-10 Numeric [Pain] -Is Patient Pain Free? Yes Musculoskeletal: No Tenderness to Palpation of Joints or Extremities Lymphatic: No Cervical, Supraclavicular, or Inguinal Adenopathy Neurological: Cranial nerves II-XII grossly intact, Neuro grossly intact Psych/Mental Status: Normal Affect, Appropriate Debridement Note Post-Debridement Measurements/Treatment WC - Nurse 2 - General Ulcer CM Notes Start: 09/16/19 11:25 Freq: Status: Active Protocol: Activity Type Activity Date Activity User E-Sign Co-Sign Detail Recorded Client Recorded Date Recorded By Document 09/16/19 11:43 MW [id number] 09/16/19 11:50 MW Document 09/23/19 12:00 MW [id number] 09/23/19 12:02 MW Document 10/07/19 11:59 MW [id number] 10/07/19 12:02 MW 09/16/19 09/23/19 10/07/19 11:43 12:00 11:59 Wound Center Nurse 2 1. L great toe -Time 11:45 12:01 11:59 -Correct Patient Yes Yes Yes -Correct Side, Site, Position Yes Yes Yes -Correct Procedure Yes Yes Yes -Procedure Performed Yes Yes Yes -Type of Procedure Debridement Debridement Debridement -Clinical Debridement Subcutaneous Subcutaneous Subcutaneous -Post Debridement Size (cm) - Length 0.3 0.2 0.2 -Post Debridement Size (cm) - Width 0.3 0.2 0.2 -Post Debridement Size (cm) - Depth 0.2 0.1 0.1 -Total Square (cm) 0.09 0.04 0.04 -Wound/Ulcer Outcome Not Healed Not Healed Not Healed -Ulcer Cleansing Rinsed/ Rinsed/ Rinsed/ Irrigated with Irrigated with Irrigated with Saline Saline Saline -Foul Odor after Cleansing No No No -Bioengineered Tissue No No No -Bleeding Controlled with Pressure Pressure Pressure -Offloading No No No -Treatment Response Procedure Procedure Procedure Tolerated Well Tolerated Well Tolerated Well Pain Scale: 0-10 Numeric Is Patient Pain Free? Yes Yes Yes Wound debrided: Left great toe decubitus ulcer Type of Debridement: Excisional debridement Anesthesia Used: 5% Lidocaine Gel Depth: Down to and including healthy tissue Percentage of wound debrided: 100 Instrument Used: 3mm curette Tissue Removed: Vitalized tissue Severity: Limited To Skin Breakdown Amount of bleeding with debridement: None Bleeding Controlled with: Pressure Assessment/Plan Active Problems Multiple sclerosis (Acute) Foot drop, bilateral (Acute) Decubitus ulcer of toe, stage 2 (Acute) Assessment: Foot drop bilateral feet. Stage II ulcer left great toe dorsal side. Neuropathy bilateral lower legs with weakness Plan: Wash left great toe with antibacterial soap and water. Cover with gauze and tape. Follow-up in 1 week
== END 2019-10-09 23:59 ==
LOC: WC 11:30
PROVIDERS: PCP Family Medicine; Referring Provider Nurse Practitioner; Visit Provider Nurse Practitioner
DX: L89.892 Pressure ulcer of other site, stage 2 (principal); G35 Multiple sclerosis; M21.372 Foot drop, left foot; M21.371 Foot drop, right foot; G62.9 Polyneuropathy, unspecified
CPT/HCPCS: 11042

== ENCOUNTER 2019-10-14 08:21 | Outpatient (RCR) | payer MEDICARE, MEDICAID, SELFPAY ==
[2019-10-10 00:35] VITALS: BP 142/69; PULSE 60; RESP 16; TEMP 37
[2019-10-14 11:43] VITALS: RESP 16; TEMP 37.1; BMI 18.9
--- NOTE | 2019-10-14 12:06 | PN.PCM_ITS ---
(1) Bilateral leg weakness Status: Acute Current Visit: Yes Code(s): R29.898 - Other symptoms and signs involving the musculoskeletal system (2) Decubitus ulcer of toe, stage 2 Status: Acute Current Visit: Yes Qualifiers: Code(s): L89.892 - Pressure ulcer of other site, stage 2 (3) Foot drop, bilateral Status: Acute Current Visit: Yes Code(s): M21.371 - Foot drop, right foot; M21.372 - Foot drop, left foot (4) Multiple sclerosis Status: Acute Current Visit: Yes Code(s): G35 - Multiple sclerosis Type of Wound Date of Service: 10/14/19 Chief Complaint: Follow-up left great toe ulcer from blister from her shoes.. History of Wound: 59-year-old white female with a history of multiple sclerosis. It had an aortic aneurysm and ended up in the hospital with no circulation going to her lower extremities had a bilateral fasciotomy that has caused her to have foot drop and difficulty walking and now is developing pressure ulcers in her toes and feet. Patient does have a AFO bilateral legs to fit into her shoes. She is starting to curl her left toe also and developing a sore on the pad of the left great toe also. Progress of Wound: Today the wound is healed patient be discharged from the wound center - Physical Exam Vital Signs Temp Pulse Resp BP 98.8 F 60 16 142/69 H 10/14/19 11:43 10/10/19 00:35 10/14/19 11:43 10/10/19 00:35 General: Oriented x3, Cooperative, Well developed HEENT: Atraumatic, PERRLA Oral: Moist Mucosa Neck: Supple, No JVD Lungs: Clear to auscultation, Normal air movement Cardiovascular: Regular rate, Regular Rhythm Abdomen: Bowel Sounds Present, Soft, Non Tender, No Hepato-splenomegaly Extremities: No clubbing, No edema Skin: Ulcer/ Wound - Decubitus ulcer left great toe and the joint resolved Wound Measurements and Assessment WC - Nurse 1 - General Ulcer Measurement Start: 10/14/19 11:43 Freq: Status: Active Protocol: Activity Type Activity Date Activity User E-Sign Co-Sign Detail Recorded Client Recorded Date Recorded By Document 10/14/19 11:43 [facility] [id number] 10/14/19 11:48 BM 10/14/19 11:43 Wound Center Nurse 1 [Ulcer Assessment] 1. L great toe -Combined with other wound No -Current Size (cm) - Length 0.1 -Current Size (cm) - Width 0.1 -Current Size (cm) - Depth 0.1 -Total Square Cm 0.01 -Epithelialization Large 67-100% -Tunneling No -Undermining/Tunneling No -Circular Undermining No -Slough/Fibrin Yes -Necrosis Amt Small (1-33%) -Necrotic Tissue Type Adherent Slough -Texture (Celine-wound Skin Appearance) Assessed, Scarring -Moisture (Celine-wound Skin Appearance Assessed,Dry/ ) Scaly -Color (Celine-wound Skin Appearance) Assessed -Temperature (Celine-wound Skin No Abnormality Appearance) (Pt Warm) -Tenderness on Palpation (Celine-wound Yes Skin Appearance) -Ulcer Cleansing Rinsed/ Irrigated with Saline -Foul Odor after Cleansing No -Anesthetic Used 5% Lidocaine Gel WC - Nurse 2 - General Ulcer CM Notes Start: 10/14/19 11:43 Freq: Status: Active Protocol: Activity Type Activity Date Activity User E-Sign Co-Sign Detail Recorded Client Recorded Date Recorded By Document 10/14/19 11:57 MW [id number] 10/14/19 11:58 MW 10/14/19 11:57 Wound Center Nurse 2 [Procedure/Treatment] -Time 11:58 -Correct Patient Yes -Correct Side, Site, Position Yes -Correct Procedure Yes -Procedure Performed No -Post Debridement Size (cm) - Length 0 -Post Debridement Size (cm) - Width 0 -Post Debridement Size (cm) - Depth 0 -Total Square (cm) 0 -Wound/Ulcer Outcome Healed- Epithelialized [See Physician Procedure note for Specifics] Pain Scale: 0-10 Numeric [Pain] -Is Patient Pain Free? Yes Musculoskeletal: No Tenderness to Palpation of Joints or Extremities Lymphatic: No Cervical, Supraclavicular, or Inguinal Adenopathy Neurological: Cranial nerves II-XII grossly intact, Neuro grossly intact Psych/Mental Status: Normal Affect, Appropriate Debridement Note Post-Debridement Measurements/Treatment WC - Nurse 2 - General Ulcer CM Notes Start: 10/14/19 11:43 Freq: Status: Active Protocol: Activity Type Activity Date Activity User E-Sign Co-Sign Detail Recorded Client Recorded Date Recorded By Document 10/14/19 11:57 MW [id number] 10/14/19 11:58 MW 10/14/19 11:57 Wound Center Nurse 2 1. L great toe -Time 11:58 -Correct Patient Yes -Correct Side, Site, Position Yes -Correct Procedure Yes -Procedure Performed No -Post Debridement Size (cm) - Length 0 -Post Debridement Size (cm) - Width 0 -Post Debridement Size (cm) - Depth 0 -Total Square (cm) 0 -Wound/Ulcer Outcome Healed- Epithelialized Pain Scale: 0-10 Numeric Is Patient Pain Free? Yes No debridement was completed today Assessment/Plan Active Problems Multiple sclerosis (Acute) Foot drop, bilateral (Acute) Bilateral leg weakness (Acute) Decubitus ulcer of toe, stage 2 (Acute) Assessment: Left great toe resolved follow-up as needed discharge from the wound center Plan: Wash left great toe with antibacterial soap and water. Cover with gauze and tape. Follow-up in 1 week
== END 2019-10-15 10:15 | disposition home or self-care (01) ==
LOC: WC 08:21
PROVIDERS: PCP Family Medicine; Referring Provider Nurse Practitioner; Visit Provider Nurse Practitioner
DX: Z09 Encounter for follow-up examination after completed treatment for conditions other than malignant neoplasm (principal); M21.371 Foot drop, right foot; M21.372 Foot drop, left foot; G35 Multiple sclerosis
CPT/HCPCS: 99213; G0463